=== PATIENT | female | born 1960 | race Caucasian/White ===

== ENCOUNTER 2019-04-22 02:21 | Emergency (ER) | payer SELFPAY ==
[~2019-04-22] VITALS: Ht 160 cm; Wt 80.0 kg
[~2019-04-22 02:21] MED LIST: CEPH-443 PO; FAMO20TA18 PO; GLIM1TAB2 PO; HYDR-3498 PO; IBUP-1542 PO; LEVEM SC; LISI10TA2 PO; MTF1000T PO; ONDA4TAB35 PO; TRAM50TA2 PO
[2019-04-22 02:29] VITALS: Ht 160 cm; Wt 80.0 kg
[2019-04-22] MEDS ORDERED: HYDROCODONE/APAP (5/325) TAB PO ONE (03:00)
--- NOTE | 2019-04-22 03:26 | ERD ---
ER Documentation Chief Complaint Chief Complaint Left foot pain & swelling with wound due to trauma HPI Patient is a 58-year-old female, past medical history of DM type II, who presents to the ER for concerns of left foot pain and swelling after dropping a gallon water bottle on left foot 5 days ago. Patient states when she dropped the bottle the wound occurred on her foot. Wound is localized below the patient's fourth toe digit. She states the wound is not healing and she is having pain. Patient denies any fevers or chills. Patient denies any wounds to her feet prior to dropping bottle on foot. Patient denies any bleeding or drainage from site. Patient does report compliance with DM medications. She states her blood sugar was 128 this morning. ROS All systems reviewed and are negative except as per history of present illness. Medications Home Meds Active Scripts Tramadol HCl (Tramadol HCl) 50 Mg Tablet, 50 MG PO Q6 PRN for PAIN, #10 TAB Prov:ARUNA ABRAHAM PA-C 04/22/19 Cephalexin* (Keflex*) 500 Mg Capsule, 500 MG PO TID for 7 Days, CAP Prov:ARUNA ABRAHAM PA-C 04/22/19 Ibuprofen* (Motrin*) 600 Mg Tab, 600 MG PO Q6H PRN for PAIN AND OR ELEVATED TEMP, #30 TAB Prov:DIDI PRICE NP 08/18/16 Tramadol HCl (Tramadol HCl) 50 Mg Tablet, 50 MG PO Q6 PRN for PAIN, #20 TAB Prov:DIDI PRICE NP 08/18/16 Hydrocodone Bit/Acetaminophen (Anexsia 5-325 Mg Tablet) 1 Tab Tab, 1 TAB PO Q6H PRN for MODERATE PAIN LEVEL 4-6, #20 TAB Prov:FEDERICA ROLLINS NP 12/07/15 Ondansetron Hcl* (Zofran* ODT) 4 mg -ODT Tab.disper, 4 MG PO Q4H PRN for NAUSEA AND OR VOMITING, #20 TAB Prov:FEDERICA ROLLINS V. CEMENT SIDE LASTER 12/07/15 Famotidine* (Famotidine*) 20 Mg Tablet, 20 MG PO DAILY, #30 TAB Prov:FEDERICA ROLLINS V. CEMENT SIDE LASTER 12/07/15 Reported Medications Lisinopril* (Lisinopril*) Unknown Strength Tablet, PO DAILY, #30 TAB 08/17/16 Glimepiride* (Glimepiride*) Unknown Strength Tablet, PO BID, TAB 12/06/15 Insulin Detemir* (Levemir*) 100 U/Ml Vial, 22 UNIT SC HS, VIAL 12/06/15 Metformin* (Glucophage*) 1,000 Mg Tablet, 1000 MG PO BID, TAB 12/06/15 Allergies Allergies: Coded Allergies: No Known Drug Allergies (Verified Allergy, Unknown, 12/06/15) PMhx/Soc History of Surgery: Yes Anesthesia Reaction: No Hx Neurological Disorder: No Hx Respiratory Disorders: No Hx Cardiac Disorders: No Hx Psychiatric Problems: No Hx Miscellaneous Medical Probl: Yes Hx Alcohol Use: No Hx Substance Use: No Hx Tobacco Use: No FmHx Family History: diabetes ([place]) Physical Exam Vitals Vital Signs Date Temp Pulse Resp B/P (MAP) Pulse Ox O2 O2 Flow FiO2 Time Delivery Rate 04/22/19 98.3 72 16 153/69 98 Room Air 03:58 (97) 04/22/19 98.3 80 17 169/72 99 02:29 (104) Physical Exam GENERAL: Well-developed, well-nourished female. Appears in no acute distress. HEAD: Normocephalic, atraumatic. EYES: Pupils are equally reactive bilaterally. EOMs grossly intact. No conjunctival erythema. LUNG: Clear to auscultation bilaterally. No rhonchi, wheezing, rales or coarse breath sounds. HEART: Regular rate and rhythm. No murmurs, rubs or gallops. EXTREMITIES: Equal pulses bilaterally. No peripheral clubbing, cyanosis or edema. No unilateral leg swelling. NEUROLOGIC: Alert and oriented. Moving all four extremities without any difficulty. Normal speech. Steady gait. SKIN: 0.5 centimeter circular dry scabbed wound noted below the patient's fourth toe. No bleeding or discharge. Surrounding area is slightly erythematous and tender to touch. No fluctuance. No streaking. LLE: Mild swelling noted to the dorsum of the foot. Wound as described above. Tender to palpation of the midfoot. Normal range of motion of the ankle. No valgus/varus instability. Sensation intact to light touch. Neurovascularly intact. (Able to plantarflex, dorsiflex, russel foot, invert foot, raise big to e.) 2+ DP and DT pulses. Results 24 hrs Current Medications Medications Dose Sig/Kaylee Start Time Status Last (Trade) Ordered Route PRN Stop Time Admin Dose Reason Admin 1 tab ONCE ONCE 04/22/19 DC 04/22/19 Acetaminophen PO 03:00 02:50 / 04/22/19 03:01 Hydrocodone Bitart ([place] (5/325)) Procedures/MDM ED COURSE: The patient was stable throughout ED course. I kept the patient and/or family informed of laboratory and diagnostic imaging results throughout the ED course. DIAGNOSTIC IMAGING: Read by radiologist. DIAGNOSTIC IMAGING REPORT Patient: ADAN MIKE : 1960 Age: 58 Sex: F MR #: [id number] DOS: 04/22/19 0244 Ordering MD: ARUNA ABRAHAM PA-C Location: [facility] Room/Bed: PROCEDURE: XR Foot. CLINICAL INDICATION: Pain TECHNIQUE: AP, lateral and oblique views of the left foot was obtained. The images were reviewed on a PACS workstation. COMPARISON: None. FINDINGS: The bones of the foot appear intact, with no evidence of fracture, dislocation, or subluxation. The joint spaces are preserved. The bone mineralization is normal. There is soft tissue swelling in the dorsum of the left foot. There is a moderate plantar calcaneal spur. RPTAT: AA IMPRESSION: Soft tissue swelling with no acute fracture. Moderate plantar calcaneal spur. .Luis Roe MD, Date Time Electronically viewed and signed by .Luis Roe MD, MD on 04/22/2019 04:26 .S/ CC: ARUNA ABRAHAM PA-C [id number] MEDICAL DECISION MAKING: Patient is a 58-year-old female, past medical history of DM type II, presents the ER for concerns of left foot pain and swelling after dropping a gallon water bottle on her foot 5 days ago. Patient admitted to DM medication compliance. Vital signs were reviewed. Patient was afebrile. Patient was not hypoxic. On exam, wound is noted below the patient's fourth toe. No active bleeding or discharge. Wound appears dry and clean. Mild surrounding erythema. No fluctuance or induration. Xray imaging was negative for acute fracture or dislocation. See formal report above. At this time for the patient presen tation is most consistent with wound infection and heel spir. Patient will be started on Keflex and advised to return here in 2 days for wound recheck. Patient advised to return sooner for any new or worsening symptoms. Low suspicion for deep space infection, abscess, sepsis, osteomyelitis, fracture or dislocation. Patient advised to follow-up with [facility] as well. Referral information provided. PRESCRIPTIONS: Tramadol, Keflex Patient was not take tramadol when driving or operating any machinery. DISCHARGE: At this time, patient is stable for discharge and outpatient management. I have instructed the patient to follow-up with his/her primary care physician in 1-2 days. I have discussed with the patient the possibility of needing to see an patient relations specialist for further workup and imaging if the pain persists. I have instructed the patient to promptly return to the ER for any new or worsening symptoms including increased pain, swelling, redness, warmth or fever. The patient and/or family expressed understanding of and agreement with this plan. All questions were answered. Home care instructions were provided. Disclaimer: Inadvertent spelling and grammatical errors are likely due to EHR/dictation software use and do not reflect on the overall quality of patient care. Also, please note that the electronic time recorded on this note does not necessarily reflect the actual time of the patient encounter. Departure Diagnosis: Primary Impression: Foot pain, left Additional Impressions: Wound infection Diabetes Diabetes mellitus type: other specified (including EUNICE) Diabetes mellitus exterminator termite insulin use: unspecified senior living insulin use status Diabetes mellitus complication status: with other specified complication Qualified Codes: E13.69 - Other specified diabetes mellitus with other specified complication Condition: Fair Patient Instructions: Wound Care Referrals: [facility] YOU HAVE RECEIVED A MEDICAL SCREENING EXAM AND THE RESULTS INDICATE THAT YOU DO NOT HAVE A CONDITION THAT REQUIRES URGENT TREATMENT IN THE EMERGENCY DEPARTMENT. FURTHER EVALUATION AND TREATMENT OF YOUR CONDITION CAN WAIT UNTIL YOU ARE SEEN IN YOUR DOCTORS OFFICE WITHIN THE NEXT 1-2 DAYS. IT IS YOUR RESPONSIBILITY [facility] IF YOU HAVE A PRIMARY DOCTOR --you should call your primary doctor and schedule an appointment IF YOU DO NOT HAVE A PRIMARY DOCTOR YOU CAN CALL OUR PHYSICIAN REFERRAL HOTLINE AT IF YOU CAN NOT AFFORD TO SEE A PHYSICIAN YOU CAN CHOSE FROM THE FOLLOWING [facility] [address] [facility] [address] [facility] [address] [facility] [address] [facility] [address] [facility]. [facility] [address] [facility]. [facility] YOU HAVE RECEIVED A MEDICAL SCREENING EXAM AND THE RESULTS INDICATE THAT YOU DO NOT HAVE A CONDITION THAT REQUIRES URGENT TREATMENT IN THE EMERGENCY DEPARTMENT. FURTHER EVALUATION AND TREATMENT OF YOUR CONDITION CAN WAIT UNTIL YOU ARE SEEN IN YOUR DOCTORS OFFICE WITHIN THE NEXT 1-2 DAYS. IT IS YOUR RESPONSIBILITY TO MAKE AN APPOINTMENT FOR [facility]. IF YOU HAVE A PRIMARY DOCTOR --you should call your primary doctor and schedule and appointment IF YOU DO NOT HAVE A PRIMARY DOCTOR YOU CAN CALL OUR PHYSICIAN REFERRAL HOTLINE AT . IF YOU CAN NOT AFFORD TO SEE A PHYSICIAN YOU CAN CHOSE FROM THE FOLLOWING [facility]: [facility] [address] [place] [address] [facility] [address] [place] [address] [facility] [address] [place] [address] Additional Instructions: Follow-up with the [facility] for wound care on an outpatient basis. Wound recheck advised in 2 days. Return to the ER sooner for any new or worsening symptoms. Call your primary care doctor TOMORROW for an appointment during the next 1-2 days.See the doctor sooner or return here if your condition worsens before your appointment time. ARUNA ABRAHAM PA-C Apr 22, 2019 03:26
[2019-04-22 03:58] VITALS: BP 153/69; PULSE 72; RESP 16
== END 2019-04-22 03:58 | disposition home or self-care (01) ==
LOC: FTE 02:21
DX: M79.672 Pain in left foot (principal); L08.9 Local infection of the skin and subcutaneous tissue, unspecified; E13.69 Other specified diabetes mellitus with other specified complication; Z79.4 Long term (current) use of insulin